=== PATIENT | female | born 1965 | race Caucasian/White ===

== ENCOUNTER → 2017-01-31 | Outpatient (CLI) | payer MEDICARE ==
[~2017-01-31] MED LIST: CLEOCIN HCL300 MG PO; COZAAR50 MG PO; KEPPRA1000 MG PO; LASIX40 MG PO; NORCO 5-325 TA1 EACH PO; ORTHO CYCLEN PO; PERCOCET 5-3251 EACH PO; TENORMIN100 MG PO
[2017-01-31 14:09] LABS: BARBITURATE NEGATIVE (NEGATIVE); COCAINE NEGATIVE (NEGATIVE); OPIATES POSITIVE (NEGATIVE)
[2017-01-31 14:11] LABS: AMPHETAMINE NEGATIVE (NEGATIVE)
== END | disposition disaster alternative care site (69) ==
LOC: GLAB 12:00
PROVIDERS: Orthopaedic Surgery
DX: G89.29 Other chronic pain (principal)